=== PATIENT | male | born 1960 | race Caucasian/White ===

== ENCOUNTER 2016-10-21 22:53 | Emergency (ER) | payer OTHER ==
[2016-10-21 23:29] VITALS: TEMP 98; BMI 26.9
[2016-10-22] MEDS ORDERED: ACETAMINOPHEN 325 MG TABLET (FP) PO ONE (00:08)
[2016-10-22] MEDS ORDERED: SODIUM CHLORIDE 1,000 ML IV STA (00:08)
[2016-10-22] MEDS ORDERED: METOCLOPRAMIDE HCL INJECTION 10 MG/2 ML VIAL IVPB ONE (00:08)
--- NOTE | 2016-10-22 00:21 | PDOC ---
History of Present Illness - General History Source: Patient, Family, Old Records Exam Limitations: No Limitations - History of Present Illness Initial Comments: 10/22/16 00:28 56 year old male with past medical history of HTN, HLD presents with lightheadedness and tension like headache. The patient reports that he was well and in his usual state of health. 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 Not thunder clapping or worst headache of life. Denies midsternal chest pain or SOB. Denies recent illnesses, fevers, chills, cough. Did not take any medications. He continually felt lightheaded so came into the ED. <José Luis Mirza - Last Filed: 10/22/16 00:28> - General History Source: Patient Exam Limitations: No Limitations <Nikita Prakash - Last Filed: 10/22/16 12:24> - General Chief Complaint: Lightheaded Stated Complaint: BLOOD PRESSURE PROBLEM Time Seen by Provider: 10/21/16 23:58 Past History <José Luis Mirza - Last Filed: 10/22/16 00:28> - Past Medical History HTN: Yes Hypercholesterolemia: Yes - Psycho/Social/Smoking Cessation Hx Suicidal Ideation: No Smoking History: Never smoked <Nikita Prakash - Last Filed: 10/22/16 12:24> - Past Medical History Allergies/Adverse Reactions: Allergies Allergy/AdvReac Type Severity Reaction Status Date / Time No Known Allergies Allergy Verified 10/21/16 23:26 Home Medications: Ambulatory Orders NK [No Known Home Medication] 10/21/16 Review of Systems - Review of Systems Able to Perform ROS?: Yes Comments:: 10/22/16 00:29 GENERAL/CONSTITUTIONAL: No fever or chills. No weakness. HEAD, EYES, EARS, NOSE AND THROAT: No change in vision. No ear pain or discharge. No sore throat. CARDIOVASCULAR: No chest pain or shortness of breath. RESPIRATORY: No cough, wheezing, or hemoptysis. GASTROINTESTINAL: (+) Lightheaded. No vomiting, diarrhea or constipation. GENITOURINARY: No dysuria, frequency, or change in urination. MUSCULOSKELETAL: No joint or muscle swelling or pain. No neck or back pain. SKIN: No rash NEUROLOGIC: (+) Headache No vertigo, loss of consciousness, or change in strength/sensation. ENDOCRINE: No increased thirst. No abnormal weight change. HEMATOLOGIC/LYMPHATIC: No anemia, easy bleeding, or history of blood clots. ALLERGIC/IMMUNOLOGIC: No hives or skin allergy. <José Luis Mirza - Last Filed: 10/22/16 00:28> *Physical Exam - Vital Signs Last Vital Signs Temp Pulse Resp BP Pulse Ox 98 F 71 18 161/107 98 10/21/16 23:26 10/21/16 23:26 10/21/16 23:26 10/21/16 23:26 10/21/16 23:26 - Physical Exam Comments: 10/22/16 00:29 GENERAL: Awake, alert, and fully oriented, in no acute distress HEAD: No signs of trauma EYES: PERRLA, EOMI, sclera anicteric, conjunctiva clear ENT: Auricles normal inspection, hearing grossly normal, nares patent, oropharynx clear without exudates. Moist mucosa NECK: Normal ROM, supple, no lymphadenopathy, JVD, or masses LUNGS: Breath sounds equal, clear to auscultation bilaterally. No wheezes, and no crackles HEART: Regular rate and rhythm, normal S1 and S2, no murmurs, rubs or gallops ABDOMEN: Soft, nontender, normoactive bowel sounds. No guarding, no rebound. No masses EXTREMITIES: Normal range of motion, no edema. No clubbing or cyanosis. No cords, erythema, or tenderness SKIN: Warm, Dry, normal turgor, no rashes or lesions noted. <José Luis Mirza - Last Filed: 10/22/16 00:28> - Vital Signs Last Vital Signs Temp Pulse Resp BP Pulse Ox 98 F 71 18 161/107 98 10/21/16 23:26 10/21/16 23:26 10/21/16 23:26 10/21/16 23:26 10/21/16 23:26 - Physical Exam Comments: 10/22/16 00:18 NEURO: CN II-XII intact 5/5 strength upper and lower extremities. Sensation intact. Speech normal. No cerebellar signs. <Nikita Prakash - Last Filed: 10/22/16 12:24> Heart Score/ECG Review #1 ECG reviewed & interpreted by me at: 00:45 10/22/16 01:01 NSR 71, no std/carlos manuel, normal axis, normal intervals, QTC 425 msec 10/22/16 01:02 No brugada,No HOCM <Nikita Prakash - Last Filed: 10/22/16 12:24> ED Treatment Course - LABORATORY CBC & Chemistry Diagram: 10/22/16 00:30 10/22/16 00:30 - RADIOLOGY Radiology Studies Ordered: Category Date Time Status HEAD CT WITHOUT CONTRAST [CT] Stat CT Scan 10/22/16 00:08 Ordered <Nikita Prakash - Last Filed: 10/22/16 12:24> Medical Decision Making - Medical Decision Making 10/22/16 00:18 A portion of this note was documented by scribe services under my direction. I have reviewed the details of the note, within reason, and agree with the documentation with the following case summary and management plan written by me. Patient treated in the ED. Nursing notes are reviewed and incorporated into the medical decision-making. Vital signs reviewed. Peripheral IV access obtained by the nurse, laboratory studies are drawn and sent, reviewed and interpreted by myself. Vital Signs Temp Pulse Resp BP Pulse Ox 98 F 71 18 161/107 98 10/21/16 23:26 10/21/16 23:26 10/21/16 23:26 10/21/16 23:26 10/21/16 23:26 56 year old male with past medical history of HTN, HLD presents with lightheadedness and tension like headache. The patient reports that he was well and in his usual state of health. 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 Not thunderclapping or worst headache of life. Denies midsternal chest pain or SOB. Denies recent illnesses, fevers, chills, cough. Did not take any medications. He continually felt lightheaded so came into the ED. The patient reports that the lightheadedness is worse with sitting or standing up. Reports a normal appetite. I suspect that his headache is tension-like headache but I have low suspicion for cardiac disease at this time. Will however send labs including Troponin and give IVF for possible dehydration. Given the elevated BP and headache, will perform head CT, though I doubt SAH. Will give medications and reassess and recheck vitals. If patient reports feeling better and workup unremarkable, patient can be d/c c/ PMD follow up. 10/22/16 01:45 CBC, BMP 10/22/16 00:30 10/22/16 00:30 CMP Sodium 142 mmol/L (136-145) 10/22/16 00:30 Potassium 4.1 mmol/L (3.5-5.1) 10/22/16 00:30 Chloride 104 mmol/L (98-107) 10/22/16 00:30 Carbon Dioxide 27 mmol/L (21-32) 10/22/16 00:30 Anion Gap 11 (8-16) 10/22/16 00:30 BUN 13 mg/dL (7-18) 10/22/16 00:30 Creatinine 1.0 mg/dL (0.7-1.3) 10/22/16 00:30 Creat Clearance w eGFR > 60 (>60) 10/22/16 00:30 Random Glucose 140 mg/dL (74-106) H 10/22/16 00:30 Calcium 9.0 mg/dL (8.5-10.1) 10/22/16 00:30 Total Bilirubin 0.5 mg/dL (0.2-1.0) 10/22/16 00:30 AST 42 U/L (15-37) H 10/22/16 00:30 ALT 83 U/L (12-78) H 10/22/16 00:30 Alkaline Phosphatase 96 U/L (45-117) 10/22/16 00:30 Creatine Kinase 173 IU/L (39-308) 10/22/16 00:30 Troponin I < 0.02 ng/ml (0.00-0.05) 10/22/16 00:30 Total Protein 7.2 g/dl (6.4-8.2) 10/22/16 00:30 Albumin 4.0 g/dl (3.4-5.0) 10/22/16 00:30 10/22/16 02:09 Patient reports resolution of headache and feels well. Head CT pending. Case signed to Dr. Morgan for further management. If head CT negative, pt can be discharged. <Nikita Prakash - Last Filed: 10/22/16 12:24> *DC/Admit/Observation/Transfer - Attestations Scribe Attestion: 10/22/16 00:29 Documentation prepared by José Luis Mirza, acting as medical reimbursement manager for Nikita Prakash MD. <José Luis Mirza - Last Filed: 10/22/16 00:28> <Nikita Prakash - Last Filed: 10/22/16 12:24> Diagnosis at time of Disposition: Lightheadedness Headache Qualifiers: Headache type: tension-type Headache chronicity pattern: acute headache Intractability: not intractable Qualified Code(s): G44.209 - Tension-type headache, unspecified, not intractable - Discharge Dispostion Condition at time of disposition: Stable - Referrals Referrals: Zev Gray MD [Primary Care Provider] - - Patient Instructions Printed Discharge Instructions: DI for Dizziness-Nonvertigo, DI for Headache Additional Instructions: Take 650 mg tylenol every 4 hours as needed for headache. Please drink plenty of fluids and rest. Follow up with your primary care physician. Print Language: MAORI - Post Discharge Activity Work/School Note: Back to Work
[2016-10-22] MEDS ORDERED: ACETAMINOPHEN 325 MG TABLET (FP) ONE (00:28)
[2016-10-22] MEDS ORDERED: METOCLOPRAMIDE HCL INJECTION 10 MG/2 ML VIAL ONE (00:28)
[2016-10-22 00:55] LABS: BASOPHIL 0.8 % (0-2.0); EOSINOPHIL 1.7 % (0-4.5); MCHC 34.1 g/dl (32.0-35.9); MEAN CELL VOLUME 93.9 fl (80-96); MEAN PLT VOLUME 9.7 fl (7.5-11.1); NEUTROPHILS 67.7 % (42.8-82.8); PLATELET COUNT 189 K/MM3 (134-434); RDW 13.1 % (11.9-15.9); WHITE BLOOD COUNT 7.6 K/mm3 (4.0-10.0)
[2016-10-22 01:27] LABS: ANION GAP 11 (8-16); BILIRUBIN,TOTAL 0.5 mg/dL (0.2-1.0); CO2 27 mmol/L (21-32); GLUCOSE,RANDOM 140 mg/dL (74-106); SGOT/AST 42 U/L (15-37); SGPT/ALT 83 U/L (12-78); TOT PROT 7.2 g/dl (6.4-8.2)
[2016-10-22 01:30] LABS: ALK PHOS 96 U/L (45-117); TROPONIN I < 0.02 ng/ml (0.00-0.05)
[2016-10-22 02:58] VITALS: BP 148/82; PULSE 70
--- NOTE | 2016-10-22 09:54 | EKG ---
Test Reason : Blood Pressure : / mmHG Vent. Rate : 071 BPM Atrial Rate : 071 BPM P-R Int : 164 ms QRS Dur : 076 ms QT Int : 392 ms P-R-T Axes : 051 -01 012 degrees QTc Int : 425 ms NORMAL SINUS RHYTHM WITH SINUS ARRHYTHMIA POSSIBLE LEFT ATRIAL ENLARGEMENT NO PREVIOUS ECGS AVAILABLE Confirmed by EVER COSTA MD ([id number]) on 10/22/2016 9:54:23 AM Referred By: Confirmed By:EVER COSTA MD
== END 2016-10-22 02:58 | disposition home or self-care (01) ==
LOC: JER 22:53
PROC: 3E033GC Introduction of Other Therapeutic Substance into Peripheral Vein, Percutaneous Approach (ICD-10-PCS; principal; 2016-10-21)
DX: G44.209 Tension-type headache, unspecified, not intractable (principal); I10 Essential (primary) hypertension; E78.5 Hyperlipidemia, unspecified; E78.00 Pure hypercholesterolemia, unspecified
CPT/HCPCS: 36415; 70450-TC; 80053; 82550; 82553; 84484; 85025; 93005; 93010; 99283-25

== ENCOUNTER 2017-06-09 09:12 | Day surgery (SDC) | payer OTHER ==
[2017-06-08 15:05] VITALS: BMI 26.8
[2017-06-09] MEDS ORDERED: PROPOFOL 20 ML ONE ×2 (09:36)
[2017-06-09] MEDS ORDERED: LIDOCAINE HCL 2% (20ML MULTI-DOSE VIAL) NR ONE (09:36)
[2017-06-09 10:41] VITALS: TEMP 97.8
[2017-06-09 11:25] VITALS: BP 147/74; PULSE 63
== END 2017-06-09 11:20 | disposition home or self-care (01) ==
LOC: JASU-ENDO 09:12
PROVIDERS: ATTEND Internal Medicine Cardiovascular Disease
PROC: B246ZZ4 Ultrasonography of Right and Left Heart, Transesophageal (ICD-10-PCS; principal; 2017-06-09 10:00)
DX: I74.9 Embolism and thrombosis of unspecified artery (principal)
CPT/HCPCS: 93312; 93325